=== PATIENT | female | born 1990 | race Caucasian/White ===

== ENCOUNTER 2017-01-05 09:12 | Inpatient (IN) | payer MEDICAID ==
[2017-01-05] MEDS ORDERED: Nalbuphine 20 MG/1 ML Amp IVPUSH PRN (09:58)
[2017-01-05] MEDS ORDERED: Sodium Chloride 0.9% 10 ML Syringe FLUSH PRN (09:58)
[2017-01-05] MEDS ORDERED: Ondansetron 4 MG/2 ML SDV IVPUSH PRN (09:58)
[2017-01-05] MEDS ORDERED: Oxytocin/Lactated Ringers 10 UNIT/1,000 ML BAG IV SCH ×2 (10:00→10:15)
--- NOTE | 2017-01-05 10:09 | PCM.LDHP ---
L&D History of Present Illness - General Date of Service: 01/05/17 Admit Problem/Dx: Patient Status Order with Admit Dx/Problem 01/05/17 09:59 Patient Status [ADT] Routine Patient Status: Refer to Observation Admission Diagnosis/Problem: Reason for Admit: Nurse Unit Type: Labor and Delivery Admitting Physician: Jourdan Hill Attending Physician: Jourdan Hill Medicare 96 Hour Certification Statement: This Patient is Admitted for Inpatient Services and is Medically Appropriate and Meets Medical Necessity for Inpatient Admission. I Reasonably Expect the Patient Will Require Inpatient Services That Span a Period of Time Over 2 Midnights. My Rationale for Medically Necessary Inpatient Care Will Be Found in the Admission History & Physical and Progress Notes. I Reasonably Expect the Patient to be Discharged or Transferred Within 96 Hours After Admission to This [facility]. Admission Diagnosis/Problem Admission Diagnosis/Problem Source of Information: Patient History Limitations: Reports: No limitations - History of Present Illness Introduction:: 26 y/o SARA 01/05/17 EGA 38w6d GBS negative contractions q4min /s/p/v- 3 observation for delivery Improves with: Reports: None Worsens with: Reports: None Associated Symptoms: Reports: N - Related Data Allergies/Adverse Reactions: Allergies Allergy/AdvReac Type Severity Reaction Status Date / Time clavulanic acid Allergy Hives Verified 01/02/17 18:57 [From Augmentin] latex Allergy Rash Verified 01/02/17 18:57 Home Medications: Home Meds Ferrous Gluconate 324 mg PO BID 01/02/17 [History] Pnv No.122/Iron/Folic Acid [ Multi Tablet] 1 each PO DAILY 01/02/17 [ History] Past Medical History : 2 Para: 0 (0010) H&P Review of Systems - Review of Systems: Review Of Systems: See Below General: Reports: no symptoms HEENT: Reports: no symptoms Pulmonary: Reports: No Symptoms Cardiovascular: Reports: no symptoms Gastrointestinal: Reports: No symptoms Genitourinary: Reports: no symptoms Musculoskeletal: Reports: no symptoms Skin: Reports: no symptoms Psychiatric: Reports: no symptoms Neurological: Reports: No Symptoms Hematologic/Lymphatic: Reports: no symptoms Immunologic: Reports: no symptoms L&D Exam - Exam Exam: See Below - Vital Signs Weight: 181 lb - OB Specific Fundal Height in cm: 38 Contraction Duration (sec): 4 Contraction Frequency (min): 60 Contraction Intensity: Mild to Moderate movement: active heart tones: present heart tones per min: 140 Heart Rate (FHR) Variability: Moderate (6-25 bmp) Presentation: Vertex - Durbin Score Durbin Score Cervix Position: Posterior Durbin Score Consistency: Soft Durbin Score Effacement: 31-50% Durbin Score Dilation: 1-2 cm Durbin Score Infant's Station: -3 Durbin Score Total: 4 - Exam General: alert, oriented HEENT: Mucosa moist & pink Neck: supple, trachea midline Lungs: Clear to auscultation, Normal respiratory effort Cardiovascular: regular rate, regular rhythm Abdomen: normal bowel sounds, soft Genitourinary: Normal external exam Extremities: normal inspection Skin: warm, dry, intact Psychiatric: alert, normal affect, normal mood - Problem List (1) 40 weeks gestation of SNOMED Code(s): 52725724 ICD Code: Z3A.40 - 40 WEEKS GESTATION OF Status: Acute Current Visit: Yes Problem List Initiated/Reviewed/Updated: No Orders Last 24hrs: Active Orders 24 hr Category Date Time Status Patient Status [ADT] Routine ADT 01/05/17 09:59 Ordered Activity as Tolerated [RC] PFP Care 01/05/17 09:58 Ordered Communication Order [RC] ASDIRECTED Care 01/05/17 09:58 Ordered Heart Tones [RC] ASDIRECTED Care 01/05/17 09:59 Ordered Notify Provider [RC] PFP Care 01/05/17 09:58 Ordered Notify Provider [RC] PRN Care 01/05/17 09:58 Ordered Peripheral IV Care [RC] . DIRECTED Care 01/05/17 09:59 Ordered Vital Signs [RC] PER UNIT ROUTINE Care 01/05/17 09:58 Ordered Clear Liquid Diet [DIET] Diet 01/05/17 Dinner Ordered Regular Diet [DIET] Diet 01/05/17 Lunch Ordered CBC WITH AUTO DIFF [HEME] Stat Lab 01/05/17 09:58 Ordered TYPE AND SCREEN [BBK] Stat Lab 01/05/17 09:58 Ordered Lactated Ringers [Ringers, Lactated] 1,000 ml Med 01/05/17 10:00 Ordered IV ASDIRECTED Nalbuphine [Nubain] Med 01/05/17 09:58 Ordered 10 mg IVPUSH Q2H PRN Ondansetron [Zofran] Med 01/05/17 09:58 Ordered 4 mg IVPUSH Q4H PRN Oxytocin/Lactated Ringers [Pitocin in LR 10 Units/1,000 Med 01/05/17 10:00 Ordered ML] 10 unit in 1,000 ml IV TITRATE Oxytocin/Lactated Ringers [Pitocin in LR 10 Units/1,000 Med 01/05/17 10:15 Ordered ML] 10 unit in 1,000 ml IV TITRATE Sodium Chloride 0.9% [Saline Flush] Med 01/05/17 09:58 Ordered 10 ml FLUSH ASDIRECTED PRN Electronic Heart Tones Ext w TOCO [WOMSER] Ot 01/05/17 09:58 Ordered Routine Electronic Heart Tones Internal [WOMSER] Per Unit Ot 01/05/17 09:58 Ordered Routine Peripheral IV Insertion Adult [OM.PC] Routine Oth 01/05/17 09:58 Ordered Resuscitation Status Routine Resus Stat 01/05/17 09:58 Ordered Medication Orders Lactated Ringer's (Ringers, Lactated) 1,000 mls @ 100 mls/hr IV ASDIRECTED RAMESH Oxytocin/Lactated Ringer's (Pitocin In Lr 10 Units/1,000 Ml) 10 unit in 1,000 mls @ 500 mls/hr IV TITRATE RAMESH Oxytocin/Lactated Ringer's (Pitocin In Lr 10 Units/1,000 Ml) 10 unit in 1,000 mls @ 12 mls/hr IV TITRATE RAMESH; 2 MUNITS/MIN PRN Reason: Protocol Nalbuphine HCl (Nubain) 10 mg IVPUSH Q2H PRN PRN Reason: Pain (moderate 4-6) Ondansetron HCl (Zofran) 4 mg IVPUSH Q4H PRN PRN Reason: Nausea/Vomiting Sodium Chloride (Saline Flush) 10 ml FLUSH ASDIRECTED PRN PRN Reason: Keep Vein Open Assessment/Plan Comment:: Plan delivery
--- NOTE | 2017-01-05 13:23 | PCM.PREANE ---
Preanesthetic Assessment - Anesthesia/Transfusion/Family Hx Anesthesia History: Prior Anesthesia Without Reaction Family History of Anesthesia Reaction: No Transfusion History: No Prior Transfusion(s) Type of Transfusion Reactions: Reports: Unknown - Review of Systems General: No Symptoms Pulmonary: No Symptoms Cardiovascular: No Symptoms Gastrointestinal: No symptoms Neurological: No Symptoms Other: Reports: None - Physical Assessment NPO Status Date: 01/05/17 NPO Status Time: 13:20 Respiratory Rate: 16 Vital Signs: Last Vital Signs Temp 36.3 C 01/05/17 09:30 Pulse 81 01/05/17 09:30 Resp 16 01/05/17 09:30 BP 119/88 01/05/17 09:30 Pulse Ox Height: 1.57 m Weight: 82.735 kg Mental Status: Alert & Oriented x3 Dentition: Reports: Normal Dentition Thyro-Mental Finger Breadths: 3 Mouth Opening Finger Breadths: 3 ROM/Head Extension: Full Lungs: Clear to auscultation, Normal respiratory effort Cardiovascular: Regular Rate, Regular Rhythm - Lab Values: Laboratory Last Values WBC 9.30 K/mm3 (3.98-10.04) 01/05/17 10:13 RBC 3.67 M/mm3 (3.98-5.22) L 01/05/17 10:13 Hgb 10.5 gm/L (11.2-15.7) L 01/05/17 10:13 Hct 32.0 % (34.1-44.9) L 01/05/17 10:13 MCV 87.2 fl (79.4-94.8) 01/05/17 10:13 MCH 28.6 pg (25.6-32.2) 01/05/17 10:13 MCHC 32.8 g/dl (32.2-35.5) 01/05/17 10:13 RDW Std Deviation 44.2 fL (36.4-46.3) 01/05/17 10:13 Plt Count 183 K/mm3 (182-369) 01/05/17 10:13 MPV 12.0 fl (9.4-12.3) 01/05/17 10:13 Neut % (Auto) 77.1 % (34.0-71.1) H 01/05/17 10:13 Lymph % (Auto) 16.7 % (19.3-51.7) L 01/05/17 10:13 Caswell % (Auto) 5.2 % (4.7-12.5) 01/05/17 10:13 Eos % (Auto) 0.6 (0.7-5.8) L 01/05/17 10:13 Baso % (Auto) 0.2 % (0.1-1.2) 01/05/17 10:13 Neut # 7.17 K/mm3 (1.56-6.13) H 01/05/17 10:13 Lymph # 1.55 K/mm3 (1.18-3.74) 01/05/17 10:13 Caswell # 0.48 K/mm3 (0.24-0.36) H 01/05/17 10:13 Eos # 0.06 K/mm3 (0.04-0.36) 01/05/17 10:13 Baso # 0.02 K/mm3 (0.01-0.08) 01/05/17 10:13 Blood Type O POSITIVE 01/05/17 10:13 Gel Antibody Screen Negative 01/05/17 10:13 - Allergies Allergies/Adverse Reactions: Allergies Allergy/AdvReac Type Severity Reaction Status Date / Time clavulanic acid Allergy Hives Verified 01/02/17 18:57 [From Augmentin] latex Allergy Rash Verified 01/02/17 18:57 - Blood Blood Available: No Product(s) Available: None - Anesthesia Plan Pre-Op Medication Ordered: None - Acknowledgements Anesthesia Type Planned: Epidural Pt an Appropriate Candidate for the Planned Anesthesia: Yes Alternatives and Risks of Anesthesia Discussed w Pt/Guardian: Yes Pt/Guardian Understands and Agrees with Anesthesia Plan: Yes PreAnesthesia Questionnaire - Past Health History Medical/Surgical History: Denies Medical/Surgical History - SUBSTANCE USE Smoking Status *Q: Never Smoker Second Hand Smoke Exposure: No Recreational Drug Use History: No - HOME MEDS Home Medications: Home Meds Ferrous Gluconate 324 mg PO BID 01/02/17 [History] Pnv No.122/Iron/Folic Acid [ Multi Tablet] 1 each PO DAILY 01/02/17 [ History] - CURRENT (IN HOUSE) MEDS Current Meds: Current Medications Lactated Ringer's (Ringers, Lactated) 1,000 mls @ 100 mls/hr IV ASDIRECTED RAMESH Oxytocin/Lactated Ringer's (Pitocin In Lr 10 Units/1,000 Ml) 10 unit in 1,000 mls @ 500 mls/hr IV TITRATE RAMESH Oxytocin/Lactated Ringer's (Pitocin In Lr 10 Units/1,000 Ml) 10 unit in 1,000 mls @ 12 mls/hr IV TITRATE RAMESH; 2 MUNITS/MIN PRN Reason: Protocol Nalbuphine HCl (Nubain) 10 mg IVPUSH Q2H PRN PRN Reason: Pain (moderate 4-6) Ondansetron HCl (Zofran) 4 mg IVPUSH Q4H PRN PRN Reason: Nausea/Vomiting Sodium Chloride (Saline Flush) 10 ml FLUSH ASDIRECTED PRN PRN Reason: Keep Vein Open Preanesthetic Assessment - ANESTHESIA/TRANSFUSION/FAMILY HX Family History of Anesthesia Reaction: No - PHYSICAL ASSESSMENT RR: 16 Vital Signs: Last Vital Signs Temp 36.3 C 01/05/17 09:30 Pulse 81 01/05/17 09:30 Resp 16 01/05/17 09:30 BP 119/88 01/05/17 09:30 Pulse Ox Height: 1.57 m Weight: 82.735 kg - LAB Values: Laboratory Last Values WBC 9.30 K/mm3 (3.98-10.04) 01/05/17 10:13 RBC 3.67 M/mm3 (3.98-5.22) L 01/05/17 10:13 Hgb 10.5 gm/L (11.2-15.7) L 01/05/17 10:13 Hct 32.0 % (34.1-44.9) L 01/05/17 10:13 MCV 87.2 fl (79.4-94.8) 01/05/17 10:13 MCH 28.6 pg (25.6-32.2) 01/05/17 10:13 MCHC 32.8 g/dl (32.2-35.5) 01/05/17 10:13 RDW Std Deviation 44.2 fL (36.4-46.3) 01/05/17 10:13 Plt Count 183 K/mm3 (182-369) 01/05/17 10:13 MPV 12.0 fl (9.4-12.3) 01/05/17 10:13 Neut % (Auto) 77.1 % (34.0-71.1) H 01/05/17 10:13 Lymph % (Auto) 16.7 % (19.3-51.7) L 01/05/17 10:13 Caswell % (Auto) 5.2 % (4.7-12.5) 01/05/17 10:13 Eos % (Auto) 0.6 (0.7-5.8) L 01/05/17 10:13 Baso % (Auto) 0.2 % (0.1-1.2) 01/05/17 10:13 Neut # 7.17 K/mm3 (1.56-6.13) H 01/05/17 10:13 Lymph # 1.55 K/mm3 (1.18-3.74) 01/05/17 10:13 Caswell # 0.48 K/mm3 (0.24-0.36) H 01/05/17 10:13 Eos # 0.06 K/mm3 (0.04-0.36) 01/05/17 10:13 Baso # 0.02 K/mm3 (0.01-0.08) 01/05/17 10:13 Blood Type O POSITIVE 01/05/17 10:13 Gel Antibody Screen Negative 01/05/17 10:13 - ALLERGIES Allergies/Adverse Reactions: Allergies Allergy/AdvReac Type Severity Reaction Status Date / Time clavulanic acid Allergy Hives Verified 01/02/17 18:57 [From Augmentin] latex Allergy Rash Verified 01/02/17 18:57
--- NOTE | 2017-01-05 15:41 | PCM.SN ---
- Free Text/Narrative Note: Cervix is 1 cm, 50% effaced, cephalic presentation, soft, posterior, will begin Cytotec, repeat same . Every 4 hours x3 doses total category one. heart rate planned, beginning Pitocin, dilute solution augmentation, and a.m., at 0400 if indicated
[2017-01-05] MEDS ORDERED: Misoprostol 100 MCG Tab VAG SCH (15:45)
[2017-01-05] MEDS: Misoprostol 25 MCG (1/4 of 100 MCG) Tab VAG SCH ×2 (16:00→22:12)
[2017-01-06] MEDS ORDERED: Morphine 10 MG/ML Syringe IM ONE
[2017-01-06] MEDS ORDERED: hydrOXYzine HCl 25 MG/ML SDV IM ONE
[2017-01-06] MEDS ORDERED: Promethazine 25 MG/ML SDV IM ONE ×2 (00:06)
[2017-01-06] MEDS ORDERED: Misoprostol 25 MCG (1/4 of 100 MCG) Tab ONE (02:02)
[2017-01-06] MEDS: Misoprostol 25 MCG (1/4 of 100 MCG) Tab VAG SCH (02:12)
[2017-01-06] MEDS ORDERED: Oxytocin/Lactated Ringers 10 UNIT/1,000 ML BAG IV SCH (04:00)
[2017-01-06] MEDS: Lactated Ringers 1,000 ML IV SCH ×2 (06:05→11:24)
--- NOTE | 2017-01-06 07:31 | PCM.SN ---
- Free Text/Narrative Note: Cervix is 4 cm, dilated, 100% effaced, soft, midposition, vertex, -1. Amniotomy performed at 0725 or fluid category one. heart rate
[2017-01-06] MEDS ORDERED: fentaNYL 100 MCG/2 ML SDV ONE (07:46)
[2017-01-06] MEDS ORDERED: fentaNYL 100 MCG/2 ML SDV EPIDUR PRN (08:01)
[2017-01-06] MEDS ORDERED: ePHEDrine 50 MG/ML SDV IVPUSH PRN (08:01)
[2017-01-06] MEDS ORDERED: diphenhydrAMINE 50 MG/ML SDV IVPUSH PRN (08:01)
[2017-01-06] MEDS ORDERED: Bupivacaine/fentaNYL/NS 100 ML Bag EPIDUR SCH (08:15)
[2017-01-06] MEDS ORDERED: Acetaminophen 325 MG Tab PO PRN ×2 (10:40→14:13)
--- NOTE | 2017-01-06 10:51 | PCM.SN ---
- Free Text/Narrative Note: 09 called to room for IV start #20 ga. right anticubital with lido bleb good blood return good flush out room at 0947
--- NOTE | 2017-01-06 11:57 | PCM.SN ---
- Free Text/Narrative Note: 102.2 F temp, Aerobic/anaerobic culture x2 taken. Started on Mefoxin 2 grams IV. Exam at 1145 cervix with rim anterior right but resolves with contraction, begin pushing. tachycardia probably from fever. Discussed possible section but patient and agree to continue to try for vaginal delivery, case also discussed with Dr Hartley and she is in agreement with plan unless condition change warrants section. Vertex at 0 station. If pushing not showing significant progress in 30 minutes trun off epidural. Considered internal pressure and FHR application but due to the fever, trying to avoid additional risk will continue with external mode for now. Plan Plater Barrel at delivery as well.
[2017-01-06] MEDS ORDERED: cefOXitin 2 GM in Premix Bag 1 BAG IV SCH (12:00)
[2017-01-06] MEDS ORDERED: Lidocaine 1% 50 ML MDV ONE (13:28)
[2017-01-06] MEDS ORDERED: Misoprostol 200 MCG Tab ONE (13:36)
--- NOTE | 2017-01-06 14:00 | PCM.DEL ---
L & D Note - General Info Date of Service: 01/06/17 Mother's Due Date: 01/05/17 - Delivery Note Labor: spontaneous, augmented by ARM, augmented by oxytocin Cervical Ripening Method: Misoprostil (25 mcg x3) Delivery Outcome: Livebirth (Male live born Wednesday[birth year] at 1332 hours, cane weigher, Dr. Faust in attendance Apgars 8/9. At one and 5 minutes, weight 3470 g, 7 pounds, 10. 4 vacuum extraction x2 in the green less than a minute Each, NAFISA) Delivery Mode: Vacuum Extraction (X2 in the green less than a minute. Each) Presentation: Left Occiput Anterior (NAFISA) Nuchal cord: present (X1 tight) Prep: povidone-iodine (betadine Anesthesia Type: Local, Epidural Anesthetic: lidocaine (xylocaine) 1% plain Local anesthetic volume: 5cc Amniotic Fluid Description: Meconium stained Episiotomy Type: Midline Laceration: 3rd degree Suture type: other (Monocryl) Suture size: 3-0 Placenta: intact, spontaneous (Was delivered at 13, 35 hours, intact. Central cord insertion. Meconium staining aerobic, anaerobic culture taken surface of the placenta. Placenta, sent to pathology for tissue evaluation) Cord: 3 vessels Estimated blood loss: 750 Resuscitation needed: No : suctioned, bulb syringe, stimulated, warmed, blanket used, warmer used Provider: Jourdan Hill Score 1 min: 8 Score 5 min: 9 - Patient Data Vitals - most recent: Last Vital Signs Temp 102.2 F H 01/06/17 10:44 Pulse 81 01/05/17 09:30 Resp 16 01/05/17 13:23 BP 119/88 01/05/17 09:30 Pulse Ox Weight - most recent: 182 lb 6.4 oz I&O - last 24 hours: Intake & Output 01/05/17 01/06/17 01/06/17 22:59 06:59 14:59 Intake Total 240 Balance 240 Med Orders - Current: Current Medications Acetaminophen (Tylenol) 650 mg PO Q4H PRN PRN Reason: Fever Last Admin: 01/06/17 10:44 Dose: 650 mg Diphenhydramine HCl (Benadryl) 25 mg IVPUSH Q6H PRN PRN Reason: Itching Ephedrine Sulfate (Ephedrine Sulfate) 5 mg IVPUSH ASDIRECTED PRN PRN Reason: HYPOTENTSION Fentanyl (Sublimaze) 100 mcg EPIDUR Q3H PRN PRN Reason: PAIN Fentanyl/Bupivacaine HCl (Fentanyl/Bupivacaine/Ns 2 Mcg-0.125% 100 Ml) 100 ml EPIDUR ASDIRECTED RAMESH Last Admin: 01/06/17 08:16 Dose: 100 ml Lactated Ringer's (Ringers, Lactated) 1,000 mls @ 100 mls/hr IV ASDIRECTED RAMESH Last Infusion: 01/06/17 11:30 Dose: 125 mls/hr Oxytocin/Lactated Ringer's (Pitocin In Lr 10 Units/1,000 Ml) 10 unit in 1,000 mls @ 500 mls/hr IV TITRATE RAMESH Oxytocin/Lactated Ringer's (Pitocin In Lr 10 Units/1,000 Ml) 10 unit in 1,000 mls @ 12 mls/hr IV TITRATE RAMESH; 2 MUNITS/MIN PRN Reason: Protocol Oxytocin/Lactated Ringer's (Pitocin In Lr 10 Units/1,000 Ml) 10 unit in 1,000 mls @ 12 mls/hr IV TITRATE RAMESH; 2 MUNITS/MIN PRN Reason: Protocol Last Titration: 01/06/17 09:20 Dose: 0 munits/min, 0 mls/hr Cefoxitin Sodium 2 gm/ Premix 50 mls @ 100 mls/hr IV Q6HR RAEMSH Last Admin: 01/06/17 11:37 Dose: 100 mls/hr Nalbuphine HCl (Nubain) 10 mg IVPUSH Q2H PRN PRN Reason: Pain (moderate 4-6) Last Admin: 01/06/17 07:36 Dose: 10 mg Ondansetron HCl (Zofran) 4 mg IVPUSH Q4H PRN PRN Reason: Nausea/Vomiting Sodium Chloride (Saline Flush) 10 ml FLUSH ASDIRECTED PRN PRN Reason: Keep Vein Open Discontinued Medications Fentanyl (Sublimaze) Confirm Administered Dose 100 mcg .ROUTE .STK-MED ONE Stop: 01/06/17 07:47 Last Admin: 01/06/17 08:02 Dose: 100 mcg Hydroxyzine HCl (Vistaril) 50 mg IM ONETIME ONE Stop: 01/06/17 00:01 Lidocaine HCl (Xylocaine 1%) Confirm Administered Dose 50 ml .ROUTE .STK-MED ONE Stop: 01/06/17 13:29 Misoprostol (Cytotec) 25 mcg VAG Q4H [facility] Stop: 01/06/17 00:01 Last Admin: 01/06/17 02:12 Dose: 25 mcg Misoprostol (Cytotec) 25 mcg VAG Q4H RAMESH Stop: 01/05/17 23:46 Misoprostol (Cytotec) Confirm Administered Dose 25 mcg .ROUTE .STK-MED ONE Stop: 01/06/17 02:03 Last Admin: 01/06/17 02:09 Dose: 25 mcg Misoprostol (Cytotec) Confirm Administered Dose 600 mcg .ROUTE .STK-MED ONE Stop: 01/06/17 13:37 Morphine Sulfate (Morphine) 10 mg IM ONETIME ONE Stop: 01/06/17 00:01 Last Admin: 01/06/17 00:11 Dose: 10 mg Promethazine HCl (Phenergan) 50 mg IM ONETIME ONE Stop: 01/06/17 00:06 Last Admin: 01/06/17 07:39 Dose: Not Given Promethazine HCl (Phenergan) 25 mg IM ONETIME ONE Stop: 01/06/17 00:07 Last Admin: 01/06/17 00:22 Dose: 25 mg - Problem List & Annotations (1) 40 weeks gestation of SNOMED Code(s): 74855414 Code(s): Z3A.40 - 40 WEEKS GESTATION OF Status: Acute Current Visit: Yes (2) Puerperal pyrexia of unknown origin, SNOMED Code(s): 690138765 Code(s): O86.4 - PYREXIA OF UNKNOWN ORIGIN FOLLOWING DELIVERY Status: Acute Current Visit: Yes (3) Nuchal cord with compression, delivered, current hospitalization SNOMED Code(s): 131288797 Code(s): O69.1XX0 - LABOR AND DELIVERY COMP BY CORD AROUND NECK, W COMPRSN, UNSP Status: Acute Current Visit: Yes (4) Meconium passage during delivery SNOMED Code(s): 255090450, 799902070 Code(s): O77.0 - LABOR AND DELIVERY COMPLICATED BY MECONIUM IN AMNIOTIC FLUID Status: Acute Current Visit: Yes - Problem List Review Problem List Initiated/Reviewed/Updated: No - My Orders Last 24 Hours: My Active Orders 01/05/17 Dinner Regular Diet [DIET] 01/06/17 04:00 Oxytocin/Lactated Ringers [Pitocin in LR 10 Units/1,000 ML] 10 unit in 1,000 ml IV TITRATE 01/06/17 10:40 Acetaminophen [Tylenol] 650 mg PO Q4H PRN 01/06/17 11:20 CULTURE BLOOD [BC] Stat 01/06/17 11:38 CULTURE BLOOD [BC] Routine 01/06/17 12:00 cefOXitin [Mefoxin in Dextrose,Iso-Osm 2 GM/50 ML] 2 gm Premix Bag 1 bag IV Q6HR - Plan Plan:: Plan delivery
[2017-01-06] MEDS ORDERED: Witch Hazel Medicated Pads 100/Jar TOP PRN (14:13)
[2017-01-06] MEDS ORDERED: Acetaminophen/oxyCODONE 325-5 MG Tab PO PRN (14:13)
[2017-01-06] MEDS ORDERED: Benzocaine/Menthol 20%-0.5% Spray 56 GM Canister TOP PRN (14:13)
[2017-01-06] MEDS ORDERED: Bupivacaine 0.25% 10 ML SDV ONE (14:13)
[2017-01-06] MEDS ORDERED: Lanolin 100% Cream 7 GM Tube TOP PRN (14:13)
[2017-01-06] MEDS: cefOXitin 2 GM in Premix Bag 1 BAG IV SCH ×2 (16:09→21:53)
[2017-01-06] MEDS ORDERED: Misoprostol 200 MCG Tab PO PRN (20:00)
[2017-01-06] MEDS: Ibuprofen 600 MG Tab PO PRN (22:19)
[2017-01-06] MEDS: Docusate Sodium 100 MG Cap PO PRN (22:26)
[2017-01-07] MEDS: cefOXitin 2 GM in Premix Bag 1 BAG IV SCH ×4 (03:50→22:31)
--- NOTE | 2017-01-07 07:45 | PCM.PN ---
- General Info Date of Service: 01/07/17 Functional Status: Reports: pain controlled - Review of Systems General: Reports: No Symptoms HEENT: Reports: no symptoms Pulmonary: Reports: no symptoms Cardiovascular: Reports: No Symptoms Gastrointestinal: Reports: No symptoms Genitourinary: Reports: no symptoms Musculoskeletal: Reports: no symptoms Skin: Reports: no symptoms Neurological: Reports: No Symptoms Psychiatric: Reports: no symptoms - Patient Data Vitals - most recent: Last Vital Signs Temp 97.5 F 01/07/17 03:49 Pulse 73 01/07/17 03:49 Resp 15 01/07/17 03:49 BP 98/67 01/07/17 03:49 Pulse Ox 98 01/07/17 03:49 Weight - most recent: 182 lb 6.4 oz I&O - last 24 hours: Intake & Output 01/06/17 01/07/17 01/07/17 22:59 06:59 14:59 Intake Total 5 Balance 5 Lab Results last 24 hrs: Laboratory Results - last 24 hr 01/05/17 01/07/17 Range/Units 10:13 06:20 WBC 17.24 H (3.98-10.04) K/mm3 RBC 2.83 L (3.98-5.22) M/mm3 Hgb 8.0 L (11.2-15.7) gm/L Hct 24.9 L (34.1-44.9) % MCV 88.0 (79.4-94.8) fl MCH 28.3 (25.6-32.2) pg MCHC 32.1 L (32.2-35.5) g/dl RDW Std Deviation 44.7 (36.4-46.3) fL Plt Count 140 L (182-369) K/mm3 MPV 12.0 (9.4-12.3) fl Neut % (Auto) 83.7 H (34.0-71.1) % Lymph % (Auto) 9.2 L (19.3-51.7) % Stanley % (Auto) 6.4 (4.7-12.5) % Eos % (Auto) 0.3 L (0.7-5.8) Baso % (Auto) 0.1 (0.1-1.2) % Neut # 14.44 H (1.56-6.13) K/mm3 Lymph # 1.58 (1.18-3.74) K/mm3 Stanley # 1.10 H (0.24-0.36) K/mm3 Eos # 0.05 (0.04-0.36) K/mm3 Baso # 0.02 (0.01-0.08) K/mm3 Blood Type O POSITIVE Gel Antibody Screen Negative Alfredo Results last 24 hrs: Microbiology 01/06/17 11:20 Anaerobic Blood Culture - Preliminary Blood Gram Negative Rods 01/06/17 11:38 Aerobic Blood Culture - Preliminary Blood Gram Negative Rods Anaerobic Blood Culture - Preliminary Gram Negative Rods 01/06/17 13:50 Gram Stain - Final Placenta - Placenta, Side Med Orders - Current: Current Medications Acetaminophen (Tylenol) 650 mg PO Q4H PRN PRN Reason: mild pain or fever Last Admin: 01/06/17 14:42 Dose: 650 mg Benzocaine/Menthol (Dermoplast Pain Relief [place]) 0 gm TOP ASDIRECTED PRN PRN Reason: Perineal Comfort Measure Last Admin: 01/06/17 17:09 Dose: 1 can Docusate Sodium (Colace) 100 mg PO BID PRN PRN Reason: Constipation Last Admin: 01/06/17 22:26 Dose: 100 mg Emollient Ointment (Lansinoh Hpa) 0 gm TOP ASDIRECTED PRN PRN Reason: Sore Nipples Cefoxitin Sodium 2 gm/ Premix 50 mls @ 100 mls/hr IV Q6H RAMESH Stop: 01/08/17 10:29 Last Admin: 01/07/17 03:50 Dose: 100 mls/hr Ibuprofen (Motrin) 600 mg PO Q4H PRN PRN Reason: Mild pain or fever Last Admin: 01/06/17 22:19 Dose: 600 mg Misoprostol (Cytotec) 200 mcg PO Q6H PRN PRN Reason: excessive vaginal bleeding Stop: 01/08/17 14:01 Oxycodone/Acetaminophen (Percocet 325-5 Mg) 2 tab PO Q4H PRN PRN Reason: Pain (moderate 4-6) Witch Shahrzad (Tucks) 1 pad TOP ASDIRECTED PRN PRN Reason: Hemorrhoid pain Last Admin: 01/06/17 17:09 Dose: 1 tub Discontinued Medications Acetaminophen (Tylenol) 650 mg PO Q4H PRN PRN Reason: Fever Last Admin: 01/06/17 10:44 Dose: 650 mg Diphenhydramine HCl (Benadryl) 25 mg IVPUSH Q6H PRN PRN Reason: Itching Ephedrine Sulfate (Ephedrine Sulfate) 5 mg IVPUSH ASDIRECTED PRN PRN Reason: HYPOTENTSION Fentanyl (Sublimaze) Confirm Administered Dose 100 mcg .ROUTE .STK-smartclip ONE Stop: 01/06/17 07:47 Last Admin: 01/06/17 08:02 Dose: 100 mcg Fentanyl (Sublimaze) 100 mcg EPIDUR Q3H PRN PRN Reason: PAIN Fentanyl/Bupivacaine HCl (Fentanyl/Bupivacaine/Ns 2 Mcg-0.125% 100 Ml) 100 ml EPIDUR ASDIRECTED RAMESH Last Admin: 01/06/17 08:16 Dose: 100 ml Hydroxyzine HCl (Vistaril) 50 mg IM ONETIME ONE Stop: 01/06/17 00:01 Lactated Ringer's (Ringers, Lactated) 1,000 mls @ 100 mls/hr IV ASDIRECTED RAMESH Last Infusion: 01/06/17 11:30 Dose: 125 mls/hr Oxytocin/Lactated Ringer's (Pitocin In Lr 10 Units/1,000 Ml) 10 unit in 1,000 mls @ 500 mls/hr IV TITRATE RAMESH Oxytocin/Lactated Ringer's (Pitocin In Lr 10 Units/1,000 Ml) 10 unit in 1,000 mls @ 12 mls/hr IV TITRATE RAMESH; 2 MUNITS/MIN PRN Reason: Protocol Oxytocin/Lactated Ringer's (Pitocin In Lr 10 Units/1,000 Ml) 10 unit in 1,000 mls @ 12 mls/hr IV TITRATE RAMESH; 2 MUNITS/MIN PRN Reason: Protocol Last Titration: 01/06/17 13:35 Dose: 500 mls/hr Cefoxitin Sodium 2 gm/ Premix 50 mls @ 100 mls/hr IV Q6HR RAMESH Last Admin: 01/06/17 11:37 Dose: 100 mls/hr Lidocaine HCl (Xylocaine 1%) Confirm Administered Dose 50 ml .ROUTE .[employer]-smartclip ONE Stop: 01/06/17 13:29 Last Admin: 01/06/17 13:30 Dose: 25 ml Misoprostol (Cytotec) 25 mcg VAG Q4H RAMESH Stop: 01/06/17 00:01 Last Admin: 01/06/17 02:12 Dose: 25 mcg Misoprostol (Cytotec) 25 mcg VAG Q4H RAMESH Stop: 01/05/17 23:46 Misoprostol (Cytotec) Confirm Administered Dose 25 mcg .ROUTE .STK-MED ONE Stop: 01/06/17 02:03 Last Admin: 01/06/17 02:09 Dose: 25 mcg Misoprostol (Cytotec) Confirm Administered Dose 600 mcg .ROUTE .STK-MED ONE Stop: 01/06/17 13:37 Last Admin: 01/06/17 14:25 Dose: 600 mcg Morphine Sulfate (Morphine) 10 mg IM ONETIME ONE Stop: 01/06/17 00:01 Last Admin: 01/06/17 00:11 Dose: 10 mg Nalbuphine HCl (Nubain) 10 mg IVPUSH Q2H PRN PRN Reason: Pain (moderate 4-6) Last Admin: 01/06/17 07:36 Dose: 10 mg Ondansetron HCl (Zofran) 4 mg IVPUSH Q4H PRN PRN Reason: Nausea/Vomiting Promethazine HCl (Phenergan) 50 mg IM ONETIME ONE Stop: 01/06/17 00:06 Last Admin: 01/06/17 07:39 Dose: Not Given Promethazine HCl (Phenergan) 25 mg IM ONETIME ONE Stop: 01/06/17 00:07 Last Admin: 01/06/17 00:22 Dose: 25 mg Sodium Chloride (Saline Flush) 10 ml FLUSH ASDIRECTED PRN PRN Reason: Keep Vein Open - Exam General: alert, oriented HEENT: Mucous membr. moist/pink Neck: supple, trachea midline Lungs: Clear to auscultation, Normal respiratory effort Cardiovascular: Regular Rate, Regular Rhythm Abdomen: bowel sounds present, soft, no tenderness, no distension (Female) Exam: Normal external exam, Normal speculum exam, Normal bimanual exam Extremities: no edema Skin: warm, dry, intact Wound/Incisions: healing well Neurological: no new focal deficit Psy/Mental Status: alert, normal affect, normal mood - Problem List & Annotations (1) 40 weeks gestation of SNOMED Code(s): 18003869 Code(s): Z3A.40 - 40 WEEKS GESTATION OF Status: Acute Current Visit: Yes (2) Puerperal pyrexia of unknown origin, SNOMED Code(s): 656761515 Code(s): O86.4 - PYREXIA OF UNKNOWN ORIGIN FOLLOWING DELIVERY Status: Acute Current Visit: Yes (3) Nuchal cord with compression, delivered, current hospitalization SNOMED Code(s): 063138917 Code(s): O69.1XX0 - LABOR AND DELIVERY COMP BY CORD AROUND NECK, W COMPRSN, UNSP Status: Acute Current Visit: Yes (4) Meconium passage during delivery SNOMED Code(s): 258665133, 132130564 Code(s): O77.0 - LABOR AND DELIVERY COMPLICATED BY MECONIUM IN AMNIOTIC FLUID Status: Acute Current Visit: Yes - Problem List Review Problem List Initiated/Reviewed/Updated: No - My Orders Last 24 Hours: My Active Orders 01/06/17 11:20 CULTURE BLOOD [BC] Stat 01/06/17 11:38 CULTURE BLOOD [BC] Routine 01/06/17 13:50 CULTURE ANAEROBIC + SMEAR [RM] Stat 01/06/17 14:13 Activity as Tolerated [RC] PER UNIT ROUTINE Vital Signs [RC] 04,12,20 Acetaminophen [Tylenol] 650 mg PO Q4H PRN Acetaminophen/oxyCODONE [Percocet 325-5 MG] 2 tab PO Q4H PRN Benzocaine/Menthol [Dermoplast Pain Relief [place]] See Dose Instructions TOP ASDIRECTED PRN Docusate Sodium [Colace] 100 mg PO BID PRN Ibuprofen [Motrin] 600 mg PO Q4H PRN Lanolin [Lansinoh HPA] See Dose Instructions TOP ASDIRECTED PRN Witch Shahrzad [Tucks] 1 pad TOP ASDIRECTED PRN Assess Lochia [WOMSER] Per Unit Routine Assess Uterine Involution [WOMSER] Per Unit Routine Breast Pump [WOMSER] Per Unit Routine Medication Administration Instruction [OM.PC] Routine Perineal Care [OM.PC] Per Unit Routine Sitz Bath [OM.PC] Per Unit Routine 01/06/17 14:15 Heat Therapy [OM.PC] PRN 01/06/17 16:00 cefOXitin [Mefoxin in Dextrose,Iso-Osm 2 GM/50 ML] 2 gm Premix Bag 1 bag IV Q6H 01/06/17 20:00 Misoprostol [Cytotec] 200 mcg PO Q6H PRN 01/06/17 Lunch Regular Diet [DIET] 01/07/17 06:20 CBC WITH AUTO DIFF [HEME] AM 01/07/17 14:15 Heat Therapy [OM.PC] PRN - Assessment Assessment:: Afebrile, continue IV mefoxin - Plan Plan:: Plan delivery
--- NOTE | 2017-01-07 08:15 | PCM48HPAN ---
Post Anesthesia Note - EVALUATION WITHIN 48HRS OF ANESTHETIC Vital Signs in Normal Range: Yes Patient Participated in Evaluation: Yes Respiratory Function Stable: Yes Airway Patent: Yes Cardiovascular Function Stable: Yes Hydration Status Stable: Yes Pain Control Satisfactory: Yes Nausea and Vomiting Control Satisfactory: Yes Mental Status Recovered: Yes
[2017-01-07] MEDS: Ibuprofen 600 MG Tab PO PRN ×3 (08:42→22:29)
[2017-01-07] MEDS: Docusate Sodium 100 MG Cap PO PRN (11:40)
[2017-01-08] MEDS: Docusate Sodium 100 MG Cap PO PRN (04:10)
[2017-01-08] MEDS: Ibuprofen 600 MG Tab PO PRN ×2 (04:10→13:48)
[2017-01-08] MEDS: cefOXitin 2 GM in Premix Bag 1 BAG IV SCH ×2 (04:11→09:56)
--- NOTE | 2017-01-08 10:35 | PCM.DCSUM1 ---
Discharge Summary - Hospital Course Free Text/Narrative:: [facility] LIVE L/D Delivery Note Patient Name: MARTIN MILLER Date of : 89 Patient Status: Inpatient Attending Provider: Jourdan Hill Date: 01/06/17 13:54 Initialization Date: 01/06/17 13:54 L & D Note - General Info Date of Service: 01/06/17 Mother's Due Date: 01/05/17 - Delivery Note Labor: spontaneous, augmented by ARM, augmented by oxytocin Cervical Ripening Method: Misoprostil (25 mcg x3) Delivery Outcome: Livebirth (Male live born Wednesday[birth year]17 at 1332 hours, activities manager, Dr. Faust in attendance Apgars 8/9. At one and 5 minutes, weight 3470 g, 7 pounds, 10. 4 vacuum extraction x2 in the green less than a minute Each, NAFISA) Delivery Mode: Vacuum Extraction (X2 in the green less than a minute. Each) Presentation: Left Occiput Anterior (NAFISA) Nuchal cord: present (X1 tight) Prep: povidone-iodine (betadine Anesthesia Type: Local, Epidural Anesthetic: lidocaine (xylocaine) 1% plain Local anesthetic volume: 5cc Amniotic Fluid Description: Meconium stained Episiotomy Type: Midline Laceration: 3rd degree Suture type: other (Monocryl) Suture size: 3-0 Placenta: intact, spontaneous (Was delivered at 13, 35 hours, intact. Central cord insertion. Meconium staining aerobic, anaerobic culture taken surface of the placenta. Placenta, sent to pathology for tissue evaluation) Cord: 3 vessels Estimated blood loss: 750 Resuscitation needed: No [place]: suctioned, bulb syringe, stimulated, warmed, blanket used, warmer used Provider: Jourdan Hill Score 1 min: 8 Score 5 min: 9 - Patient Data Vitals - most recent: Last Vital Signs Temp 102.2 F H 01/06/17 10:44 Pulse 81 01/05/17 09:30 Resp 16 01/05/17 13:23 BP 119/88 01/05/17 09:30 Pulse Ox Weight - most recent: 182 lb 6.4 oz I&O - last 24 hours: Intake & Output 01/05/17 01/06/17 01/06/17 22:59 06:59 14:59 Intake Total 240 Balance 240 Med Orders - Current: Current Medications Acetaminophen (Tylenol) 650 mg PO Q4H PRN PRN Reason: Fever Last Admin: 01/06/17 10:44 Dose: 650 mg Diphenhydramine HCl (Benadryl) 25 mg IVPUSH Q6H PRN PRN Reason: Itching Ephedrine Sulfate (Ephedrine Sulfate) 5 mg IVPUSH ASDIRECTED PRN PRN Reason: HYPOTENTSION Fentanyl (Sublimaze) 100 mcg EPIDUR Q3H PRN PRN Reason: PAIN Fentanyl/Bupivacaine HCl (Fentanyl/Bupivacaine/Ns 2 Mcg-0.125% 100 Ml) 100 ml EPIDUR ASDIRECTED RAMESH Last Admin: 01/06/17 08:16 Dose: 100 ml Lactated Ringer's (Ringers, Lactated) 1,000 mls @ 100 mls/hr IV ASDIRECTED RAMESH Last Infusion: 01/06/17 11:30 Dose: 125 mls/hr Oxytocin/Lactated Ringer's (Pitocin In Lr 10 Units/1,000 Ml) 10 unit in 1,000 mls @ 500 mls/hr IV TITRATE RAMESH Oxytocin/Lactated Ringer's (Pitocin In Lr 10 Units/1,000 Ml) 10 unit in 1,000 mls @ 12 mls/hr IV TITRATE RAMESH; 2 MUNITS/MIN PRN Reason: Protocol Oxytocin/Lactated Ringer's (Pitocin In Lr 10 Units/1,000 Ml) 10 unit in 1,000 mls @ 12 mls/hr IV TITRATE RAMESH; 2 MUNITS/MIN PRN Reason: Protocol Last Titration: 01/06/17 09:20 Dose: 0 munits/min, 0 mls/hr Cefoxitin Sodium 2 gm/ Premix 50 mls @ 100 mls/hr IV Q6HR RAMESH Last Admin: 01/06/17 11:37 Dose: 100 mls/hr Nalbuphine HCl (Nubain) 10 mg IVPUSH Q2H PRN PRN Reason: Pain (moderate 4-6) Last Admin: 01/06/17 07:36 Dose: 10 mg Ondansetron HCl (Zofran) 4 mg IVPUSH Q4H PRN PRN Reason: Nausea/Vomiting Sodium Chloride (Saline Flush) 10 ml FLUSH ASDIRECTED PRN PRN Reason: Keep Vein Open Discontinued Medications Fentanyl (Sublimaze) Confirm Administered Dose 100 mcg .ROUTE .STK-MED ONE Stop: 01/06/17 07:47 Last Admin: 01/06/17 08:02 Dose: 100 mcg Hydroxyzine HCl (Vistaril) 50 mg IM ONETIME ONE Stop: 01/06/17 00:01 Lidocaine HCl (Xylocaine 1%) Confirm Administered Dose 50 ml .ROUTE .STK-MED ONE Stop: 01/06/17 13:29 Misoprostol (Cytotec) 25 mcg VAG Q4H RAMESH Stop: 01/06/17 00:01 Last Admin: 01/06/17 02:12 Dose: 25 mcg Misoprostol (Cytotec) 25 mcg VAG Q4H RAMESH Stop: 01/05/17 23:46 Misoprostol (Cytotec) Confirm Administered Dose 25 mcg .ROUTE .STK-MED ONE Stop: 01/06/17 02:03 Last Admin: 01/06/17 02:09 Dose: 25 mcg Misoprostol (Cytotec) Confirm Administered Dose 600 mcg .ROUTE .STK-MED ONE Stop: 01/06/17 13:37 Morphine Sulfate (Morphine) 10 mg IM ONETIME ONE Stop: 01/06/17 00:01 Last Admin: 01/06/17 00:11 Dose: 10 mg Promethazine HCl (Phenergan) 50 mg IM ONETIME ONE Stop: 01/06/17 00:06 Last Admin: 01/06/17 07:39 Dose: Not Given Promethazine HCl (Phenergan) 25 mg IM ONETIME ONE Stop: 01/06/17 00:07 Last Admin: 01/06/17 00:22 Dose: 25 mg - Problem List & Annotations (1) 40 weeks gestation of SNOMED Code(s): 36276746 Code(s): Z3A.40 - 40 WEEKS GESTATION OF Status: Acute Current Visit: Yes (2) Puerperal pyrexia of unknown origin, SNOMED Code(s): 029029681 Code(s): O86.4 - PYREXIA OF UNKNOWN ORIGIN FOLLOWING DELIVERY Status: Acute Current Visit: Yes (3) Nuchal cord with compression, delivered, current hospitalization SNOMED Code(s): 823664915 Code(s): O69.1XX0 - LABOR AND DELIVERY COMP BY CORD AROUND NECK, W COMPRSN, UNSP Status: Acute Current Visit: Yes (4) Meconium passage during delivery SNOMED Code(s): 920537654, 618329082 Code(s): O77.0 - LABOR AND DELIVERY COMPLICATED BY MECONIUM IN AMNIOTIC FLUID Status: Acute Current Visit: Yes - Problem List Review Problem List Initiated/Reviewed/Updated: No - My Orders Last 24 Hours: My Active Orders 01/05/17 Dinner Regular Diet [DIET] 01/06/17 04:00 Oxytocin/Lactated Ringers [Pitocin in LR 10 Units/1,000 ML] 10 unit in 1,000 ml IV TITRATE 01/06/17 10:40 Acetaminophen [Tylenol] 650 mg PO Q4H PRN 01/06/17 11:20 CULTURE BLOOD [BC] Stat 01/06/17 11:38 CULTURE BLOOD [BC] Routine 01/06/17 12:00 cefOXitin [Mefoxin in Dextrose,Iso-Osm 2 GM/50 ML] 2 gm Premix Bag 1 bag IV Q6HR - Plan Plan:: Plan delivery Patient developed 102+ temp in labor started on Mefoxin 2 grams IV q6h and after 8 doses now switching to Keflex 500 mg po q6h x7 days disp 28 sent to [place]# 2. Had blood culture positive but placental culture negative, suspected recurrent UTI since patient had UTI in [facility] also E coli. HPI Initial Comments: [facility] LIVE L/D Delivery Note Patient Name: MARTIN MILLER Date of : 89 Patient Status: Inpatient Attending Provider: Jourdan Hill Date: 01/06/17 13:54 Initialization Date: 01/06/17 13:54 L & D Note - General Info Date of Service: 01/06/17 Mother's Due Date: 01/05/17 - Delivery Note Labor: spontaneous, augmented by ARM, augmented by oxytocin Cervical Ripening Method: Misoprostil (25 mcg x3) Delivery Outcome: Livebirth (Male live born Wednesday[birth year]17 at 1332 hours, activities manager, Dr. Faust in attendance Apgars 8/9. At one and 5 minutes, weight 3470 g, 7 pounds, 10. 4 vacuum extraction x2 in the green less than a minute Each, NAFISA) Infant Delivery Mode: Vacuum Extraction (X2 in the green less than a minute. Each) Presentation: Left Occiput Anterior (NAFISA) Nuchal cord: present (X1 tight) Prep: povidone-iodine (betadine Anesthesia Type: Local, Epidural Anesthetic: lidocaine (xylocaine) 1% plain Local anesthetic volume: 5cc Amniotic Fluid Description: Meconium stained Episiotomy Type: Midline Laceration: 3rd degree Suture type: other (Monocryl) Suture size: 3-0 Placenta: intact, spontaneous (Was delivered at 13, 35 hours, intact. Central cord insertion. Meconium staining aerobic, anaerobic culture taken surface of the placenta. Placenta, sent to pathology for tissue evaluation) Cord: 3 vessels Estimated blood loss: 750 Resuscitation needed: No : suctioned, bulb syringe, stimulated, warmed, blanket used, warmer used Provider: Jourdan Hill Score 1 min: 8 Score 5 min: 9 - Patient Data Vitals - most recent: Last Vital Signs Temp 102.2 F H 01/06/17 10:44 Pulse 81 01/05/17 09:30 Resp 16 01/05/17 13:23 BP 119/88 01/05/17 09:30 Pulse Ox Weight - most recent: 182 lb 6.4 oz I&O - last 24 hours: Intake & Output 01/05/17 01/06/17 01/06/17 22:59 06:59 14:59 Intake Total 240 Balance 240 Med Orders - Current: Current Medications Acetaminophen (Tylenol) 650 mg PO Q4H PRN PRN Reason: Fever Last Admin: 01/06/17 10:44 Dose: 650 mg Diphenhydramine HCl (Benadryl) 25 mg IVPUSH Q6H PRN PRN Reason: Itching Ephedrine Sulfate (Ephedrine Sulfate) 5 mg IVPUSH ASDIRECTED PRN PRN Reason: HYPOTENTSION Fentanyl (Sublimaze) 100 mcg EPIDUR Q3H PRN PRN Reason: PAIN Fentanyl/Bupivacaine HCl (Fentanyl/Bupivacaine/Ns 2 Mcg-0.125% 100 Ml) 100 ml EPIDUR ASDIRECTED [facility] Last Admin: 01/06/17 08:16 Dose: 100 ml Lactated Ringer's (Ringers, Lactated) 1,000 mls @ 100 mls/hr IV ASDIRECTED RAMESH Last Infusion: 01/06/17 11:30 Dose: 125 mls/hr Oxytocin/Lactated Ringer's (Pitocin In Lr 10 Units/1,000 Ml) 10 unit in 1,000 mls @ 500 mls/hr IV TITRATE RAMESH Oxytocin/Lactated Ringer's (Pitocin In Lr 10 Units/1,000 Ml) 10 unit in 1,000 mls @ 12 mls/hr IV TITRATE RAMESH; 2 MUNITS/MIN PRN Reason: Protocol Oxytocin/Lactated Ringer's (Pitocin In Lr 10 Units/1,000 Ml) 10 unit in 1,000 mls @ 12 mls/hr IV TITRATE RAMESH; 2 MUNITS/MIN PRN Reason: Protocol Last Titration: 01/06/17 09:20 Dose: 0 munits/min, 0 mls/hr Cefoxitin Sodium 2 gm/ Premix 50 mls @ 100 mls/hr IV Q6HR [facility] Last Admin: 01/06/17 11:37 Dose: 100 mls/hr Nalbuphine HCl (Nubain) 10 mg IVPUSH Q2H PRN PRN Reason: Pain (moderate 4-6) Last Admin: 01/06/17 07:36 Dose: 10 mg Ondansetron HCl (Zofran) 4 mg IVPUSH Q4H PRN PRN Reason: Nausea/Vomiting Sodium Chloride (Saline Flush) 10 ml FLUSH ASDIRECTED PRN PRN Reason: Keep Vein Open Discontinued Medications Fentanyl (Sublimaze) Confirm Administered Dose 100 mcg .ROUTE .STK-MED ONE Stop: 01/06/17 07:47 Last Admin: 01/06/17 08:02 Dose: 100 mcg Hydroxyzine HCl (Vistaril) 50 mg IM ONETIME ONE Stop: 01/06/17 00:01 Lidocaine HCl (Xylocaine 1%) Confirm Administered Dose 50 ml .ROUTE .STK-MED ONE Stop: 01/06/17 13:29 Misoprostol (Cytotec) 25 mcg VAG Q4H [facility] Stop: 01/06/17 00:01 Last Admin: 01/06/17 02:12 Dose: 25 mcg Misoprostol (Cytotec) 25 mcg VAG Q4H RAMESH Stop: 01/05/17 23:46 Misoprostol (Cytotec) Confirm Administered Dose 25 mcg .ROUTE .STK-MED ONE Stop: 01/06/17 02:03 Last Admin: 01/06/17 02:09 Dose: 25 mcg Misoprostol (Cytotec) Confirm Administered Dose 600 mcg .ROUTE .STK-MED ONE Stop: 01/06/17 13:37 Morphine Sulfate (Morphine) 10 mg IM ONETIME ONE Stop: 01/06/17 00:01 Last Admin: 01/06/17 00:11 Dose: 10 mg Promethazine HCl (Phenergan) 50 mg IM ONETIME ONE Stop: 01/06/17 00:06 Last Admin: 01/06/17 07:39 Dose: Not Given Promethazine HCl (Phenergan) 25 mg IM ONETIME ONE Stop: 01/06/17 00:07 Last Admin: 01/06/17 00:22 Dose: 25 mg - Problem List & Annotations (1) 40 weeks gestation of SNOMED Code(s): 52041458 Code(s): Z3A.40 - 40 WEEKS GESTATION OF Status: Acute Current Visit: Yes (2) Puerperal pyrexia of unknown origin, SNOMED Code(s): 200681934 Code(s): O86.4 - PYREXIA OF UNKNOWN ORIGIN FOLLOWING DELIVERY Status: Acute Current Visit: Yes (3) Nuchal cord with compression, delivered, current hospitalization SNOMED Code(s): 110396954 Code(s): O69.1XX0 - LABOR AND DELIVERY COMP BY CORD AROUND NECK, W COMPRSN, UNSP Status: Acute Current Visit: Yes (4) Meconium passage during delivery SNOMED Code(s): 180937649, 684390133 Code(s): O77.0 - LABOR AND DELIVERY COMPLICATED BY MECONIUM IN AMNIOTIC FLUID Status: Acute Current Visit: Yes - Problem List Review Problem List Initiated/Reviewed/Updated: No - My Orders Last 24 Hours: My Active Orders 01/05/17 Dinner Regular Diet [DIET] 01/06/17 04:00 Oxytocin/Lactated Ringers [Pitocin in LR 10 Units/1,000 ML] 10 unit in 1,000 ml IV TITRATE 01/06/17 10:40 Acetaminophen [Tylenol] 650 mg PO Q4H PRN 01/06/17 11:20 CULTURE BLOOD [BC] Stat 01/06/17 11:38 CULTURE BLOOD [BC] Routine 01/06/17 12:00 cefOXitin [Mefoxin in Dextrose,Iso-Osm 2 GM/50 ML] 2 gm Premix Bag 1 bag IV Q6HR - Plan Plan:: Plan delivery Patient developed 102+ temp in labor started on Mefoxin 2 grams IV q6h and after 8 doses now switching to Keflex 500 mg po q6h x7 days disp 28 sent to [place]# 2. Had blood culture positive but placental culture negative, suspected recurrent UTI since patient had UTI in [place] also E coli. Brief History: [facility] LIVE . L/D Delivery Note. [facility]: [id number]. Date of : Patient Status: Inpatient. Attending Provider: Jourdan Hill Number: [id number]. Date: 01/06/17 13:54Initialization Date: 01/06/17 13:54. L & D Note. - General Info. Date of Service: 01/06/17. Mother's Due Date: 01/05/17. - Delivery Note. Labor: spontaneous, augmented by ARM, augmented by oxytocin. Cervical Ripening Method: Misoprostil (25 mcg x3). Delivery Outcome : Livebirth (Male live born Wednesday[birth year] at 1332 hours, activities manager, Dr. Faust in attendance Apgars 8/9. At one and 5 minutes, weight 3470 g, 7 pounds, 10. 4 vacuum extraction x2 in the green less than a minute Each, NAFISA). Infant Delivery Mode: Vacuum Extraction (X2 in the green less than a minute. Each). Presentation: Left Occiput Anterior (NAFISA). Nuchal cord: present (X1 tight ). Prep: povidone-iodine (betadine. Anesthesia Type: Local, Epidural. Anesthetic: lidocaine (xylocaine) 1% plain. Local anesthetic volume: 5cc. Amniotic Fluid Description: Meconium stained. Episiotomy Type: Midline. Laceration: 3rd degree. Suture type: other (Monocryl). Suture size: 3-0. Placenta: intact, spontaneous (Was delivered at 13, 35 hours, intact. Central cord insertion. Meconium staining aerobic, anaerobic culture taken surface of the placenta. Placenta, sent to pathology for tissue evaluation). Cord: 3 vessels. Estimated blood loss: 750. Resuscitation needed: No. : suctioned, bulb syringe, stimulated, warmed, blanket used, warmer used. Provider: Jourdan Hill. Score 1 min: 8. Score 5 min : 9. - Patient Data. Vitals - most recent: Last Vital Signs. Temp 102.2 F H 01/06/17 10:44. Pulse 81 01/05/17 09:30. Resp 16 01/05/17 13:23. BP 119/88 01/05/17 09:30. Pulse Ox. Weight - most recent: 182 lb 6.4 oz. I&O - last 24 hours: Intake & Output. 01/05/1703. [id number]. Intake [id number]. [id number]. Med Orders - Current: Current Medications. Acetaminophen (Tylenol) 650 mg PO Q4H PRN. PRN Reason: Fever. Last Admin: 10:44 Dose: 650 mg. Diphenhydramine HCl (Benadryl) 25 mg IVPUSH Q6H PRN. PRN Reason: Itching. Ephedrine Sulfate (Ephedrine Sulfate) 5 mg IVPUSH ASDIRECTED PRN. PRN Reason: HYPOTENTSION. Fentanyl (Sublimaze) 100 mcg EPIDUR Q3H PRN. PRN Reason: PAIN. Fentanyl/Bupivacaine HCl (Fentanyl/ Bupivacaine/Ns 2 Mcg-0.125% 100 Ml) 100 ml EPIDUR ASDIRECTED RAMESH. Last Admin: 01/06/17 08:16 Dose: 100 ml. Lactated Ringer's (Ringers, Lactated) 1,000 mls @ 100 mls/hr IV ASDIRECTED RAMESH. Last Infusion: 01/06/17 11:30 Dose: 125 mls/ hr. Oxytocin/Lactated Ringer's (Pitocin In Lr 10 Units/1,000 Ml) 10 unit in 1, 000 mls @ 500 mls/hr IV TITRATE RAMESH. Oxytocin/Lactated Ringer's (Pitocin In Lr 10 Units/1,000 Ml) 10 unit in 1,000 mls @ 12 mls/hr IV TITRATE RAMESH; 2 MUNITS/ MIN. PRN Reason: Protocol. Oxytocin/Lactated Ringer's (Pitocin In Lr 10 Units/ 1,000 Ml) 10 unit in 1,000 mls @ 12 mls/hr IV TITRATE RAMESH; 2 MUNITS/MIN. PRN Reason: Protocol. Last Titration: 01/06/17 09:20 Dose: 0 munits/min, 0 mls/ hr. Cefoxitin Sodium 2 gm/ Premix 50 mls @ 100 mls/hr IV Q6HR RAMESH. Last Admin : 01/06/17 11:37 Dose: 100 mls/hr. Nalbuphine HCl (Nubain) 10 mg IVPUSH Q2H PRN. PRN Reason: Pain (moderate 4-6). Last Admin: 01/06/17 07:36 Dose: 10 mg. Ondansetron HCl (Zofran) 4 mg IVPUSH Q4H PRN. PRN Reason: Nausea/ Vomiting. Sodium Chloride (Saline Flush) 10 ml FLUSH ASDIRECTED PRN. PRN Reason: Keep Vein Open. Discontinued Medications. Fentanyl (Sublimaze) Confirm Administered Dose 100 mcg .ROUTE .STK-MED ONE. Stop: 01/06/17 07:47. Last Admin: 01/06/17 08:02 Dose: 100 mcg. Hydroxyzine HCl (Vistaril) 50 mg IM ONETIME ONE. Stop: 01/06/17 00:01. Lidocaine HCl (Xylocaine 1%) Confirm Administered Dose 50 ml .ROUTE .STK-MED ONE. Stop: 01/06/17 13:29. Misoprostol (Cytotec) 25 mcg VAG Q4H RAMESH. Stop: 01/06/17 00:01. Last Admin: 01/06/17 02:12 Dose: 25 mcg. Misoprostol (Cytotec) 25 mcg VAG Q4H RAMESH. Stop : 01/05/17 23:46. Misoprostol (Cytotec) Confirm Administered Dose 25 mcg .ROUTE .STK-MED ONE. Stop: 01/06/17 02:03. Last Admin: 01/06/17 02:09 Dose: 25 mcg. Misoprostol (Cytotec) Confirm Administered Dose 600 mcg .ROUTE .STK- MED ONE. Stop: 01/06/17 13:37. Morphine Sulfate (Morphine) 10 mg IM ONETIME ONE. Stop: 01/06/17 00:01. Last Admin: 01/06/17 00:11 Dose: 10 mg. Promethazine HCl (Phenergan) 50 mg IM ONETIME ONE. Stop: 01/06/17 00:06. Last Admin: 01/06/17 07:39 Dose: Not Given. Promethazine HCl (Phenergan) 25 mg IM ONETIME ONE. Stop: 01/06/17 00:07. Last Admin: 01/06/17 00:22 Dose: 25 mg. - Problem List & Annotations. (1) 40 weeks gestation of . SNOMED Code(s): 50718765. Code(s): Z3A.40 - 40 WEEKS GESTATION OF Status: Acute Current Visit: Yes. (2) Puerperal pyrexia of unknown origin, . SNOMED Code(s): 981969733. Code(s): O86.4 - PYREXIA OF UNKNOWN ORIGIN FOLLOWING DELIVERY Status: Acute Current Visit: Yes. (3) Nuchal cord with compression, delivered, current hospitalization. SNOMED Code(s): 142056031. Code(s): O69.1XX0 - LABOR AND DELIVERY COMP BY CORD AROUND NECK, W COMPRSN, UNSP Status: Acute Current Visit: Yes. (4) Meconium passage during delivery. SNOMED Code(s): 128762459, 737548130. Code(s): O77.0 - LABOR AND DELIVERY COMPLICATED BY MECONIUM IN AMNIOTIC FLUID Status: Acute Current Visit: Yes. - Problem List Review. Problem List Initiated/Reviewed/ Updated: No. - My Orders. Last 24 Hours: My Active Orders. 01/05/17 Dinner. Regular Diet [DIET]. 01/06/17 04:00. Oxytocin/Lactated Ringers [Pitocin in LR 10 Units/1,000 ML] 10 unit in 1,000 ml IV TITRATE. 01/06/17 10:40. Acetaminophen [Tylenol] 650 mg PO Q4H PRN. 01/06/17 11:20. CULTURE BLOOD [BC ] Stat. 01/06/17 11:38. CULTURE BLOOD [BC] Routine. 01/06/17 12:00. cefOXitin [Mefoxin in Dextrose,Iso-Osm 2 GM/50 ML] 2 gm Premix Bag 1 bag IV Q6HR. - Plan. Plan:: Plan delivery. Patient developed 102+ temp in labor started on Mefoxin 2 grams IV q6h and after 8 doses now switching to Keflex 500 mg po q6h x7 days disp 28 sent to [place]#2. Had blood culture positive but placental culture negative, suspected recurrent UTI since patient had UTI in also E coli. - Discharge Data Discharge Date: 01/08/17 Discharge Disposition: Home, Self-Care 01 Condition: Good - Discharge Diagnosis/Problem(s) (1) 40 weeks gestation of SNOMED Code(s): 52820791 ICD Code: Z3A.40 - 40 WEEKS GESTATION OF Status: Acute Current Visit: Yes (2) Puerperal pyrexia of unknown origin, SNOMED Code(s): 081986238 ICD Code: O86.4 - PYREXIA OF UNKNOWN ORIGIN FOLLOWING DELIVERY Status: Acute Current Visit: Yes (3) Nuchal cord with compression, delivered, current hospitalization SNOMED Code(s): 112876975 ICD Code: O69.1XX0 - LABOR AND DELIVERY COMP BY CORD AROUND NECK, W COMPRSN, UNSP Status: Acute Current Visit: Yes (4) Meconium passage during delivery SNOMED Code(s): 602963917, 202960545 ICD Code: O77.0 - LABOR AND DELIVERY COMPLICATED BY MECONIUM IN AMNIOTIC FLUID Status: Acute Current Visit: Yes - Patient Summary/Data Complications: none Consults: none Hospital Course: uneventful - Patient Instructions Diet: Heart Healthy Diet Driving: Do Not Drive (x48 hrs) Showering/Bathing: May Shower Notify Provider of: Fever, Increased Pain, Swelling and Redness, Drainage, Nausea and/or Vomiting - Discharge Plan Prescriptions/Med Rec: Cephalexin [Keflex] 500 mg PO Q6HR #28 cap Home Medications: Home Meds Ferrous Gluconate 324 mg PO BID 01/02/17 [History] Pnv No.122/Iron/Folic Acid [ Multi Tablet] 1 each PO DAILY 01/02/17 [ History] Acetaminophen [Tylenol] 650 mg PO Q6H PRN #0 tablet 01/08/17 [Rx] Benzocaine/Menthol [Dermoplast Pain Relief [place]] 1 spray TOP ASDIRECTED PRN #0 canister 01/08/17 [Rx] Cephalexin [Keflex] 500 mg PO Q6HR #28 cap 01/08/17 [Rx] Docusate Sodium [Colace] 100 mg PO BID PRN #0 cap 01/08/17 [Rx] Ibuprofen [IJD: Ibuprofen] 600 mg PO Q6H PRN #50 tablet 01/08/17 [Rx] Referrals: Sidney Keith MD [Physician] - (Call to schedule appointment in [address] Keith. ) - Discharge Summary/Plan Comment DC Time >30 min.: No - Patient Data Vitals - Most Recent: Last Vital Signs Temp 97.7 F 01/08/17 04:20 Pulse 89 01/08/17 04:20 Resp 17 01/08/17 04:20 BP 112/65 01/08/17 04:20 Pulse Ox 97 01/08/17 04:20 Weight - Most Recent: 182 lb 6.4 oz I&O - Last 24 hours: Intake & Output 01/07/17 01/08/17 01/08/17 22:59 06:59 14:59 Intake Total 420 Balance 420 EMMA Results - Last 24 hrs: Microbiology 01/06/17 11:20 Aerobic Blood Culture - Preliminary Blood NO GROWTH AFTER 1 DAY Anaerobic Blood Culture - Preliminary Escherichia Coli 01/06/17 11:38 Aerobic Blood Culture - Final Blood Escherichia Coli Anaerobic Blood Culture - Preliminary Escherichia Coli 01/06/17 13:50 Gram Stain - Final Placenta - Placenta, Side Anaerobic Culture - Preliminary Med Orders - Current: Current Medications Acetaminophen (Tylenol) 650 mg PO Q4H PRN PRN Reason: mild pain or fever Last Admin: 01/06/17 14:42 Dose: 650 mg Benzocaine/Menthol (Dermoplast Pain Relief [place]) 0 gm TOP ASDIRECTED PRN PRN Reason: Perineal Comfort Measure Last Admin: 01/06/17 17:09 Dose: 1 can Docusate Sodium (Colace) 100 mg PO BID PRN PRN Reason: Constipation Last Admin: 01/08/17 04:10 Dose: 100 mg Emollient Ointment (Lansinoh Hpa) 0 gm TOP ASDIRECTED PRN PRN Reason: Sore Nipples Ibuprofen (Motrin) 600 mg PO Q4H PRN PRN Reason: Mild pain or fever Last Admin: 01/08/17 04:10 Dose: 600 mg Misoprostol (Cytotec) 200 mcg PO Q6H PRN PRN Reason: excessive vaginal bleeding Stop: 01/08/17 14:01 Oxycodone/Acetaminophen (Percocet 325-5 Mg) 2 tab PO Q4H PRN PRN Reason: Pain (moderate 4-6) Witch Shahrzad (Tucks) 1 pad TOP ASDIRECTED PRN PRN Reason: Hemorrhoid pain Last Admin: 01/06/17 17:09 Dose: 1 tub Discontinued Medications Acetaminophen (Tylenol) 650 mg PO Q4H PRN PRN Reason: Fever Last Admin: 01/06/17 10:44 Dose: 650 mg Bupivacaine HCl (Sensorcaine-Mpf 0.25%) 10 ml .ROUTE .STK-MED ONE Stop: 01/06/17 14:14 Diphenhydramine HCl (Benadryl) 25 mg IVPUSH Q6H PRN PRN Reason: Itching Ephedrine Sulfate (Ephedrine Sulfate) 5 mg IVPUSH ASDIRECTED PRN PRN Reason: HYPOTENTSION Fentanyl (Sublimaze) Confirm Administered Dose 100 mcg .ROUTE .STK-MED ONE Stop: 01/06/17 07:47 Last Admin: 01/06/17 08:02 Dose: 100 mcg Fentanyl (Sublimaze) 100 mcg EPIDUR Q3H PRN PRN Reason: PAIN Fentanyl/Bupivacaine HCl (Fentanyl/Bupivacaine/Ns 2 Mcg-0.125% 100 Ml) 100 ml EPIDUR ASDIRECTED [facility] Last Admin: 01/06/17 08:16 Dose: 100 ml Hydroxyzine HCl (Vistaril) 50 mg IM ONETIME ONE Stop: 01/06/17 00:01 Last Admin: 01/07/17 11:05 Dose: Not Given Lactated Ringer's (Ringers, Lactated) 1,000 mls @ 100 mls/hr IV ASDIRECTED [facility] Last Infusion: 01/06/17 11:30 Dose: 125 mls/hr Oxytocin/Lactated Ringer's (Pitocin In Lr 10 Units/1,000 Ml) 10 unit in 1,000 mls @ 500 mls/hr IV TITRATE RAMESH Oxytocin/Lactated Ringer's (Pitocin In Lr 10 Units/1,000 Ml) 10 unit in 1,000 mls @ 12 mls/hr IV TITRATE RAMESH; 2 MUNITS/MIN PRN Reason: Protocol Oxytocin/Lactated Ringer's (Pitocin In Lr 10 Units/1,000 Ml) 10 unit in 1,000 mls @ 12 mls/hr IV TITRATE RAMESH; 2 MUNITS/MIN PRN Reason: Protocol Last Titration: 01/06/17 13:35 Dose: 500 mls/hr Cefoxitin Sodium 2 gm/ Premix 50 mls @ 100 mls/hr IV Q6HR [facility] Last Admin: 01/06/17 11:37 Dose: 100 mls/hr Cefoxitin Sodium 2 gm/ Premix 50 mls @ 100 mls/hr IV Q6H [facility] Stop: 01/08/17 10:29 Last Admin: 01/08/17 09:56 Dose: 100 mls/hr Lidocaine HCl (Xylocaine 1%) Confirm Administered Dose 50 ml .ROUTE .STK-MED ONE Stop: 01/06/17 13:29 Last Admin: 01/06/17 13:30 Dose: 25 ml Misoprostol (Cytotec) 25 mcg VAG Q4H [facility] Stop: 01/06/17 00:01 Last Admin: 01/06/17 02:12 Dose: 25 mcg Misoprostol (Cytotec) 25 mcg VAG Q4H [facility] Stop: 01/05/17 23:46 Misoprostol (Cytotec) Confirm Administered Dose 25 mcg .ROUTE .STK-MED ONE Stop: 01/06/17 02:03 Last Admin: 01/06/17 02:09 Dose: 25 mcg Misoprostol (Cytotec) Confirm Administered Dose 600 mcg .ROUTE .STK-MED ONE Stop: 01/06/17 13:37 Last Admin: 01/06/17 14:25 Dose: 600 mcg Morphine Sulfate (Morphine) 10 mg IM ONETIME ONE Stop: 01/06/17 00:01 Last Admin: 01/06/17 00:11 Dose: 10 mg Nalbuphine HCl (Nubain) 10 mg IVPUSH Q2H PRN PRN Reason: Pain (moderate 4-6) Last Admin: 01/06/17 07:36 Dose: 10 mg Ondansetron HCl (Zofran) 4 mg IVPUSH Q4H PRN PRN Reason: Nausea/Vomiting Promethazine HCl (Phenergan) 50 mg IM ONETIME ONE Stop: 01/06/17 00:06 Last Admin: 01/06/17 07:39 Dose: Not Given Promethazine HCl (Phenergan) 25 mg IM ONETIME ONE Stop: 01/06/17 00:07 Last Admin: 01/06/17 00:22 Dose: 25 mg Sodium Chloride (Saline Flush) 10 ml FLUSH ASDIRECTED PRN PRN Reason: Keep Vein Open *Q Meaningful Use (DIS) - VTE *Q VTE Criteria *Q: - Stroke *Q Stroke Criteria *Q: - AMI *Q AMI Criteria *Q:
[2017-01-08 12:06] VITALS: BP 118/72
== END 2017-01-08 14:00 | disposition home or self-care (01) | DRG 774 ==
LOC: JD.OBCHECK 09:12 → JD.OB 09:13 → JD.OBCHECK 09:58 → JD.OB 09:59 → OBSVTOIN 01-06 14:03
PROVIDERS: ADMIT Obstetrics & Gynecology; ATTEND Obstetrics & Gynecology
PROC: 10D07Z6 Extraction of Products of Conception, Vacuum, Via Natural or Artificial Opening (ICD-10-PCS; principal; 2017-01-06)
PROC: 10907ZC Drainage of Amniotic Fluid, Therapeutic from Products of Conception, Via Natural or Artificial Opening (ICD-10-PCS; 2017-01-06)
PROC: 0W8NXZZ Division of Female Perineum, External Approach (ICD-10-PCS; 2017-01-06)
PROC: 00HU33Z Insertion of Infusion Device into Spinal Canal, Percutaneous Approach (ICD-10-PCS; 2017-01-06)
PROC: 3E0R3CZ (ICD-10-PCS; 2017-01-06)
DX: O70.20 Third degree perineal laceration during delivery, unspecified (principal); O86.4 Pyrexia of unknown origin following delivery; O69.81X0 Labor and delivery complicated by cord around neck, without compression, not applicable or unspecified; O77.0 Labor and delivery complicated by meconium in amniotic fluid; Z3A.38 38 weeks gestation of pregnancy; Z37.0 Single live birth; Z91.040 Latex allergy status; Z88.8 Allergy status to other drugs, medicaments and biological substances
CPT/HCPCS: 36415; 85025; 86850; 86900; 86901; 87040; 87075; 87077; 87186; 87205; 88307; 88307-26; A9270-GY; J0694; J2270; J2300; J2550; J2590; J3010; J7120